=== PATIENT | female | born 1990 | race African-American/Black ===

== ENCOUNTER 2018-03-24 22:35 | Emergency (ER) | payer SELFPAY ==
[2018-03-24] MEDS ORDERED: silver sulfADIAZINE 1% CREAM 25GM TUBE. TP (22:44)
[2018-03-24] MEDS: oxyCODONE/APAP 5/325 1 TAB TABLET PO (23:47)
[2018-03-24] MEDS: DIPHTH,PERTUSS(ACELL),TET TOX 0.5 ML DISP.SYRIN. VAX IM (23:48)
== END 2018-03-25 00:04 | disposition home or self-care (01) ==
LOC: ER 03-25 00:04
DX: T25.222A Burn of second degree of left foot, initial encounter (principal); T25.021A Burn of unspecified degree of right foot, initial encounter; F17.210 Nicotine dependence, cigarettes, uncomplicated
CPT/HCPCS: 16020; 90471; 90715; 99283; 99284

== ENCOUNTER 2018-03-31 08:01 | Emergency (ER) | payer SELFPAY ==
[2018-03-31] MEDS: oxyCODONE/APAP 5/325 1 TAB TABLET PO (08:42)
[2018-03-31] MEDS: BACITRACIN TOPICAL OINT 14GM TUBE. TP (08:43)
== END 2018-03-31 09:07 | disposition home or self-care (01) ==
LOC: ER 08:01
DX: T25.222D Burn of second degree of left foot, subsequent encounter (principal); Z90.89 Acquired absence of other organs; Z98.890 Other specified postprocedural states
CPT/HCPCS: 10060; 99283

== ENCOUNTER → 2018-04-11 | Outpatient (CLI) | payer SELFPAY ==
[2018-03-31 08:10] VITALS: BP 129/79
[~2018-04-11] MED LIST: CEPH500T PO; IBUP-1060 PO; OXYC-323 PO
== END | disposition home or self-care (01) ==
LOC: PMGWOUND 08:34
PROVIDERS: ATTEND Emergency Medicine Undersea and Hyperbaric Medicine
DX: L97.522 Non-pressure chronic ulcer of other part of left foot with fat layer exposed (principal); T25.222D Burn of second degree of left foot, subsequent encounter; F17.210 Nicotine dependence, cigarettes, uncomplicated; X08.8XXD Exposure to other specified smoke, fire and flames, subsequent encounter
CPT/HCPCS: 97597; 97598